=== PATIENT | female | born 1945 | race Caucasian/White ===

== ENCOUNTER 2016-05-14 13:47 | Observation (INO) | payer OTHER ==
[~2016-05-14] VITALS: Ht 165.1 cm; Wt 100.0 kg
[~2016-05-14 13:47] MED LIST: BIOTIN PO; BYETTA10 MCG/0.0 SQ; CALCIUM + VIT1 EACH PO; CALCIUM WITH V1 EAC1 PO; CRESTOR5 MG PO; FEXOFENADINE H180 M1 PO; FUROSEMIDE40 MG PO; JANUMET 50/11 TABLET PO; LOTREL 2.5/1 CAPSULE PO; METFORMIN HCL500 MG PO; METOPROLOL SUCC25 MG PO; MULTI VITAMINS; OMEPRAZOLE20 M2 PO; SPIRIVA1 INHALATI IH; SYNTHROID125 MCG PO; VITAMIN D
[2016-05-14] MEDS ORDERED: LEVOTHYROXINE112 MCG PO (14:20)
[2016-05-14] MEDS ORDERED: LEVOCETIRIZINE D5 MG PO (14:21)
[2016-05-14] MEDS ORDERED: ATORVASTATIN CA10 MG PO (14:23)
[2016-05-14 15:12] LABS: HEMATOCRIT 38.5 % (36.0-46.0); MCH 30.4 PG (29.0-34.0); MCHC 32.7 G/DL (30.0-36.0); MEAN PLAT.VOLUME 10.9 uM^3 (9.5-12.4); PLATELET COUNT 216 K/uL (156-360); RBC DIS.WIDTH-CV 16.8 % (11.8-14.6); RBC DIS.WIDTH-SD 57.2 % (39-53); RED BLOOD COUNT 4.14 M/uL (3.80-5.20); WHITE BLOOD COUNT 8.2 K/uL (4.1-10.2)
[2016-05-14 15:21] LABS: CHLORIDE 102 mEq/L (99-109); POTASSIUM 3.2 mEq/L (3.7-5.4); SODIUM 142 mEq/L (136-147)
[2016-05-14 15:23] LABS: GLUCOSE 107 mg/dL (70-99)
[2016-05-14 15:25] LABS: ANION GAP 13 MEQ/L (2-14)
[2016-05-14 15:27] LABS: GFR ESTIMATE (CALCULATED) 47 mL/min/
[2016-05-14 15:28] LABS: UREA NITROGEN (BUN) 14 mg/dL (9-23)
[2016-05-14 15:33] LABS: TROP-I INTERPRETATION NEGATIVE; TROPONIN-I < 0.01 ng/mL (0.0-0.30)
[2016-05-14] MEDS ORDERED: LOTREL 5/101 CAPSULE PO (16:40)
[2016-05-14] MEDS ORDERED: CALCIUM 500 +1 EACH PO (16:41)
[2016-05-14] MEDS ORDERED: OMEPRAZOLE20 MG PO (16:41)
[2016-05-14] MEDS ORDERED: FLINTSTONES1 EACH PO (16:42)
[2016-05-14] MEDS ORDERED: BIOTIN1000 MICRO PO (16:42)
[2016-05-14] MEDS ORDERED: AMLODIPINE BES2.5 MG PO (16:43)
[2016-05-14] MEDS ORDERED: FERROCITE324 MG PO (16:44)
[2016-05-14] MEDS ORDERED: EPIPEN ADU0.3 MG/0.3 IM (16:44)
[2016-05-14] MEDS ORDERED: MAGNESIUM OXID500 MG PO (16:44)
[2016-05-14] MEDS ORDERED: HIZENTRA4 GM/20 ML SC (16:45)
[2016-05-14 21:19] LABS: D-DIMER ELISA 3.33 mg/L FEU (< 0.57)
[2016-05-14 21:24] LABS: TOTAL BILIRUBIN 0.6 mg/dL (0.0-1.0)
[2016-05-14 21:25] LABS: ALKALINE PHOSPHATASE 52 IU/L (3-129)
[2016-05-14 21:27] LABS: DIRECT BILIRUBIN 0.3 mg/dL (0.0-0.3)
[2016-05-14 21:29] LABS: LIPASE 10 U/L (1.0-51.0)
[2016-05-14 21:32] LABS: TROP-I INTERPRETATION NEGATIVE; TROPONIN-I 0.01 ng/mL (0.0-0.30)
[2016-05-14 21:50] VITALS: BP 149/63
[2016-05-14 22:48] LABS: POINT-OF-CARE METER ID UU13113831
[2016-05-15 01:05] VITALS: BP 156/72
[2016-05-15 04:30] LABS: HEMATOCRIT 36.3 % (36.0-46.0); MCH 30.8 PG (29.0-34.0); MCHC 33.3 G/DL (30.0-36.0); MCV 92.4 FL (83-99); MEAN PLAT.VOLUME 10.6 uM^3 (9.5-12.4); PLATELET COUNT 219 K/uL (156-360); RBC DIS.WIDTH-CV 16.9 % (11.8-14.6); RBC DIS.WIDTH-SD 57.5 % (39-53); RED BLOOD COUNT 3.93 M/uL (3.80-5.20); WHITE BLOOD COUNT 7.3 K/uL (4.1-10.2)
[2016-05-15 04:51] VITALS: BP 142/83
[2016-05-15 04:58] LABS: TROP-I INTERPRETATION NEGATIVE; TROPONIN-I 0.01 ng/mL (0.0-0.30)
[2016-05-15 07:43] VITALS: BP 125/58
[2016-05-15 08:45] LABS: POINT-OF-CARE METER ID UU13113700
[2016-05-15 09:15] LABS: POTASSIUM 3.4 mEq/L (3.7-5.4)
[2016-05-15 09:16] LABS: GLUCOSE 82 mg/dL (70-99)
[2016-05-15 09:18] LABS: ANION GAP 15 MEQ/L (2-14)
[2016-05-15 09:20] LABS: GFR ESTIMATE (CALCULATED) 52 mL/min/
[2016-05-15 09:21] LABS: UREA NITROGEN (BUN) 14 mg/dL (9-23)
[2016-05-15 09:35] LABS: SODIUM 141 mEq/L (136-147)
[2016-05-15 09:41] LABS: CHLORIDE 104 mEq/L (99-109)
[2016-05-15 10:59] VITALS: BP 133/66
[2016-05-15 14:47] LABS: INTER. NORMALIZED RATIO 1.3; PROTHROMBIN TIME 13.8 (9.2-11.2); PTT 28.6 (25-32)
[2016-05-15] MEDS ORDERED: ELIQUIS5 MG PO ×2 (15:12→16:09)
[2016-05-15] MEDS ORDERED: POTASSIUM CHLO10 ME3 PO (15:24)
[2016-05-15 16:25] VITALS: BP 126/71
== END 2016-05-15 17:47 | disposition home or self-care (01) ==
LOC: EME → EDBD 13:47 → EME 13:47 → EDOF 19:45 → 5WEST 19:45
PROVIDERS: Emergency Medicine; Hospitalist; Internal Medicine
DX: R07.89 Other chest pain (principal); I82.432 Acute embolism and thrombosis of left popliteal vein; E87.6 Hypokalemia; I11.0 Hypertensive heart disease with heart failure; I50.9 Heart failure, unspecified; E66.01 Morbid (severe) obesity due to excess calories; J84.10 Pulmonary fibrosis, unspecified; Z98.84 Bariatric surgery status; E11.9 Type 2 diabetes mellitus without complications; Z86.718 Personal history of other venous thrombosis and embolism; M19.90 Unspecified osteoarthritis, unspecified site; E78.5 Hyperlipidemia, unspecified; D50.9 Iron deficiency anemia, unspecified; E03.9 Hypothyroidism, unspecified
CPT/HCPCS: 71020; 71275; 80048; 80076; 82948; 83690; 84484; 85027; 85379; 85610; 85730; 93005; 93970; 99281; 99285; G0378; J1650; J1815

== ENCOUNTER 2016-06-01 11:11 | Inpatient (IN) | payer OTHER ==
[~2016-06-01] VITALS: Ht 165.1 cm; Wt 126.2 kg
[~2016-06-01 11:11] MED LIST changes: +AMLODIPINE BES2.5 MG PO; +ATORVASTATIN CA10 MG PO; +BIOTIN1000 MICRO PO; +CALCIUM 500 +1 EACH PO; +ELIQUIS5 MG PO; +EPIPEN ADU0.3 MG/0.3 IM; +FERROCITE324 MG PO; +FLINTSTONES1 EACH PO; +HIZENTRA4 GM/20 ML SC; +LEVOCETIRIZINE D5 MG PO; +LEVOTHYROXINE112 MCG PO; +LOTREL 5/101 CAPSULE PO; +MAGNESIUM OXID500 MG PO; +OMEPRAZOLE20 MG PO; +POTASSIUM CHLO10 ME3 PO
[2016-06-01 12:26] LABS: HEMATOCRIT 42.1 % (36.0-46.0); MCH 30.4 PG (29.0-34.0); MCHC 32.5 G/DL (30.0-36.0); MCV 93.6 FL (83-99); RBC DIS.WIDTH-CV 15.6 % (11.8-14.6)
[2016-06-01 12:27] LABS: PLATELET COUNT 393 K/uL (156-360); WHITE BLOOD COUNT 10.2 K/uL (4.1-10.2)
[2016-06-01 12:50] LABS: TROP-I INTERPRETATION NEGATIVE; TROPONIN-I 0.02 ng/mL (0.0-0.30)
[2016-06-01 12:59] LABS: CHLORIDE 101 mEq/L (99-109); POTASSIUM 3.3 mEq/L (3.7-5.4); SODIUM 144 mEq/L (136-147)
[2016-06-01 13:01] LABS: GLUCOSE 151 mg/dL (70-99)
[2016-06-01 13:02] LABS: ANION GAP 19 MEQ/L (2-14)
[2016-06-01 13:03] LABS: TOTAL BILIRUBIN 0.6 mg/dL (0.0-1.0)
[2016-06-01 13:04] LABS: ALKALINE PHOSPHATASE 60 IU/L (3-129)
[2016-06-01 13:05] LABS: GFR ESTIMATE (CALCULATED) 34 mL/min/
[2016-06-01 13:06] LABS: UREA NITROGEN (BUN) 32 mg/dL (9-23)
[2016-06-01] MEDS ORDERED: B-12500 MC1 SL (16:29)
[2016-06-01] MEDS ORDERED: ELIQUIS5 MG PO (16:29)
[2016-06-01 17:41] VITALS: BP 148/76
[2016-06-01 20:20] VITALS: BP 173/77
[2016-06-02] VITALS (9 sets, daily range): BP systolic 126–174; BP diastolic 65–80
[2016-06-02 00:44] LABS: POINT-OF-CARE METER ID UU14162508
[2016-06-02 06:08] LABS: POINT-OF-CARE METER ID UU14162508
[2016-06-02 07:39] LABS: HEMATOCRIT 36.2 % (36.0-46.0); MCH 30.6 PG (29.0-34.0); MCHC 32.6 G/DL (30.0-36.0); MCV 93.8 FL (83-99); MEAN PLAT.VOLUME 10.6 uM^3 (9.5-12.4); PLATELET COUNT 291 K/uL (156-360); RBC DIS.WIDTH-CV 15.8 % (11.8-14.6); RBC DIS.WIDTH-SD 54.7 % (39-53); RED BLOOD COUNT 3.86 M/uL (3.80-5.20); WHITE BLOOD COUNT 8.2 K/uL (4.1-10.2)
[2016-06-02 08:08] LABS: ALKALINE PHOSPHATASE 52 IU/L (3-129); ANION GAP 14 MEQ/L (2-14); CHLORIDE 105 MEQ/L (99-109); GFR ESTIMATE (CALCULATED) 47 mL/min/; POTASSIUM 3.3 MEQ/L (3.7-5.4); SAMPLE HEMOLYSIS CHECK 0; SAMPLE ICTERIC CHECK 0; SAMPLE LIPEMIA CHECK 0; SODIUM 146 MEQ/L (136-147); TOTAL BILIRUBIN 0.5 MG/DL (0.0-1.0); UREA NITROGEN (BUN) 22 mg/dL (9-23)
[2016-06-02 08:10] LABS: GLUCOSE 90 mg/dL (70-99)
[2016-06-03 04:09] VITALS: BP 133/65
[2016-06-03 06:17] LABS: POINT-OF-CARE METER ID UU14162508
[2016-06-03 07:55] VITALS: BP 149/71
[2016-06-03 09:31] LABS: HEMATOCRIT 38.4 % (36.0-46.0); MCH 30.7 PG (29.0-34.0); MCHC 32.8 G/DL (30.0-36.0); MCV 93.7 FL (83-99); MEAN PLAT.VOLUME 10.8 uM^3 (9.5-12.4); PLATELET COUNT 266 K/uL (156-360); RBC DIS.WIDTH-CV 15.5 % (11.8-14.6); RBC DIS.WIDTH-SD 53.7 % (39-53); WHITE BLOOD COUNT 10.8 K/uL (4.1-10.2)
[2016-06-03 10:46] LABS: ANION GAP 20 MEQ/L (2-14); CHLORIDE 108 MEQ/L (99-109); GFR ESTIMATE (CALCULATED) 52 mL/min/; GLUCOSE 72 mg/dL (70-99); POTASSIUM 3.2 MEQ/L (3.7-5.4); SAMPLE HEMOLYSIS CHECK 0; SAMPLE ICTERIC CHECK 0; SAMPLE LIPEMIA CHECK 0; SODIUM 149 MEQ/L (136-147); UREA NITROGEN (BUN) 12 mg/dL (9-23)
[2016-06-03 11:20] VITALS: BP 158/80
[2016-06-03 15:20] VITALS: BP 143/78
[2016-06-03 18:44] LABS: POINT-OF-CARE METER ID UU13113675
[2016-06-03 20:08] VITALS: BP 150/79
[2016-06-04 00:26] VITALS: BP 137/76
[2016-06-04 04:29] VITALS: BP 136/68
[2016-06-04 07:08] LABS: HEMATOCRIT 34.9 % (36.0-46.0); MCHC 33.2 G/DL (30.0-36.0); MCV 93.3 FL (83-99); MEAN PLAT.VOLUME 10.8 uM^3 (9.5-12.4); PLATELET COUNT 249 K/uL (156-360); RBC DIS.WIDTH-CV 15.4 % (11.8-14.6); RBC DIS.WIDTH-SD 53.1 % (39-53); RED BLOOD COUNT 3.74 M/uL (3.80-5.20)
[2016-06-04 07:11] LABS: WHITE BLOOD COUNT 16.7 K/uL (4.1-10.2)
[2016-06-04 07:18] LABS: ANION GAP 13 MEQ/L (2-14); CHLORIDE 106 MEQ/L (99-109); GFR ESTIMATE (CALCULATED) 58 mL/min/; POTASSIUM 3.4 MEQ/L (3.7-5.4); SAMPLE HEMOLYSIS CHECK 0; SAMPLE ICTERIC CHECK 0; SAMPLE LIPEMIA CHECK 0; UREA NITROGEN (BUN) 10 mg/dL (9-23)
[2016-06-04 07:19] LABS: GLUCOSE 120 mg/dL (70-99); SODIUM 141 MEQ/L (136-147)
[2016-06-04 07:31] VITALS: BP 150/70
[2016-06-04 10:54] VITALS: BP 102/57
[2016-06-04 12:30] LABS: POINT-OF-CARE METER ID UU14162508
[2016-06-04 15:53] VITALS: BP 102/49
[2016-06-04 17:19] LABS: POINT-OF-CARE METER ID UU14162508
[2016-06-04 20:20] VITALS: BP 114/59
[2016-06-05] VITALS (7 sets, daily range): BP systolic 121–136; BP diastolic 58–72
[2016-06-05 00:51] LABS: POINT-OF-CARE METER ID UU14162508
[2016-06-05 06:02] LABS: POINT-OF-CARE METER ID UU14162508
[2016-06-05 07:46] LABS: HEMATOCRIT 33.6 % (36.0-46.0); MCH 31.4 PG (29.0-34.0); MCHC 33.9 G/DL (30.0-36.0); MCV 92.6 FL (83-99); PLATELET COUNT 244 K/uL (156-360); RBC DIS.WIDTH-CV 15.5 % (11.8-14.6); RED BLOOD COUNT 3.63 M/uL (3.80-5.20)
[2016-06-05 07:47] LABS: WHITE BLOOD COUNT 11.3 K/uL (4.1-10.2)
[2016-06-05] MEDS ORDERED: LOVENOX100 MG/1 M SC (08:05)
[2016-06-05] MEDS ORDERED: MORPHINE SULFAT10 M3 PO (08:05)
[2016-06-05 08:11] LABS: CHLORIDE 107 mEq/L (99-109); POTASSIUM 3.1 mEq/L (3.7-5.4); SODIUM 139 mEq/L (136-147)
[2016-06-05 08:12] LABS: MAGNESIUM 1.6 mg/dL (1.3-2.7)
[2016-06-05 08:13] LABS: GLUCOSE 95 mg/dL (70-99)
[2016-06-05 08:14] LABS: ANION GAP 10 MEQ/L (2-14)
[2016-06-05 08:17] LABS: GFR ESTIMATE (CALCULATED) 58 mL/min/; UREA NITROGEN (BUN) 8 mg/dL (9-23)
[2016-06-05 16:31] LABS: TROP-I INTERPRETATION NEGATIVE; TROPONIN-I 0.01 ng/mL (0.0-0.30)
[2016-06-05 21:14] LABS: TROP-I INTERPRETATION NEGATIVE; TROPONIN-I 0.01 ng/mL (0.0-0.30)
[2016-06-05 21:36] LABS: POINT-OF-CARE METER ID UU14162508
[2016-06-06] VITALS (7 sets, daily range): BP systolic 74–127; BP diastolic 43–65
[2016-06-06 06:32] LABS: POINT-OF-CARE METER ID UU14162508
[2016-06-06 09:00] LABS: MCH 30.8 PG (29.0-34.0); MCHC 33.4 G/DL (30.0-36.0); MCV 92.1 FL (83-99); MEAN PLAT.VOLUME 11.4 uM^3 (9.5-12.4); PLATELET COUNT 299 K/uL (156-360); RBC DIS.WIDTH-CV 15.7 % (11.8-14.6); RBC DIS.WIDTH-SD 52.8 % (39-53); RED BLOOD COUNT 3.15 M/uL (3.80-5.20); WHITE BLOOD COUNT 14.5 K/uL (4.1-10.2)
[2016-06-06 09:09] LABS: ANION GAP 9 MEQ/L (2-14); CHLORIDE 108 MEQ/L (99-109); POTASSIUM 3.5 MEQ/L (3.7-5.4); SAMPLE HEMOLYSIS CHECK 0; SAMPLE ICTERIC CHECK 0; SAMPLE LIPEMIA CHECK 0; SODIUM 136 MEQ/L (136-147)
[2016-06-06 09:15] LABS: GFR ESTIMATE (CALCULATED) 52 mL/min/; UREA NITROGEN (BUN) 8 mg/dL (9-23)
[2016-06-06 09:20] LABS: GLUCOSE 180 mg/dL (70-99)
[2016-06-07] VITALS (28 sets, daily range): BP systolic 79–124; BP diastolic 35–66
[2016-06-07 00:36] LABS: CHLORIDE 108 mEq/L (99-109)
[2016-06-07 00:37] LABS: POTASSIUM 3.6 mEq/L (3.7-5.4); SODIUM 135 mEq/L (136-147)
[2016-06-07 00:39] LABS: GLUCOSE 179 mg/dL (70-99)
[2016-06-07 00:40] LABS: ANION GAP 8 MEQ/L (2-14)
[2016-06-07 00:42] LABS: ALKALINE PHOSPHATASE 47 IU/L (3-129)
[2016-06-07 00:44] LABS: UREA NITROGEN (BUN) 11 mg/dL (9-23)
[2016-06-07 00:45] LABS: GFR ESTIMATE (CALCULATED) 31 mL/min/; TOTAL BILIRUBIN 0.2 mg/dL (0.0-1.0)
[2016-06-07 00:57] LABS: HEMATOCRIT 21.4 % (36.0-46.0); MCHC 32.7 G/DL (30.0-36.0); MCV 94.7 FL (83-99); MEAN PLAT.VOLUME 11.7 uM^3 (9.5-12.4); PLATELET COUNT 290 K/uL (156-360); RBC DIS.WIDTH-CV 15.9 % (11.8-14.6); RED BLOOD COUNT 2.26 M/uL (3.80-5.20); WHITE BLOOD COUNT 19.9 K/uL (4.1-10.2)
[2016-06-07 06:39] LABS: POINT-OF-CARE METER ID UU14162508
[2016-06-07 11:04] LABS: HEMATOCRIT 26.8 % (36.0-46.0); MCHC 33.6 G/DL (30.0-36.0); MCV 92.4 FL (83-99); NRBC (%) 0.1 /100 WBC (0-0); PLATELET COUNT 253 K/uL (156-360); RBC DIS.WIDTH-CV 15.9 % (11.8-14.6); RBC DIS.WIDTH-SD 53.8 % (39-53)
[2016-06-07 11:28] LABS: ANION GAP 10 MEQ/L (2-14); CHLORIDE 104 MEQ/L (99-109); GFR ESTIMATE (CALCULATED) 26 mL/min/; GLUCOSE 122 mg/dL (70-99); POTASSIUM 3.6 MEQ/L (3.7-5.4); SAMPLE HEMOLYSIS CHECK 0; SAMPLE ICTERIC CHECK 0; SAMPLE LIPEMIA CHECK 0; SODIUM 134 MEQ/L (136-147); TROP-I INTERPRETATION NEGATIVE; TROPONIN-I 0.04 ng/mL (0.0-0.30); UREA NITROGEN (BUN) 13 mg/dL (9-23)
[2016-06-07 16:00] LABS: POINT-OF-CARE METER ID UU13113781
[2016-06-07 16:27] LABS: HEMATOCRIT 24.7 % (36.0-46.0); MCV 92.2 FL (83-99)
[2016-06-07 19:54] LABS: METH RESISTANT S AUREUS PCR NEGATIVE (NEGATIVE)
[2016-06-07 20:16] LABS: PROBE CHECK PASS; SPECIMEN PROCESSING CONTROL PASS
[2016-06-08] VITALS (31 sets, daily range): BP systolic 69–153; BP diastolic 30–85
[2016-06-08 03:36] LABS: HEMATOCRIT 27.8 % (36.0-46.0); MCH 30.4 PG (29.0-34.0); MCHC 34.2 G/DL (30.0-36.0); MCV 88.8 FL (83-99); NRBC (%) 0.2 /100 WBC (0-0); PLATELET COUNT 255 K/uL (156-360); RBC DIS.WIDTH-CV 16.1 % (11.8-14.6); RBC DIS.WIDTH-SD 50.9 % (39-53); RED BLOOD COUNT 3.13 M/uL (3.80-5.20)
[2016-06-08 03:44] LABS: CHLORIDE 107 mEq/L (99-109); POTASSIUM 3.6 mEq/L (3.7-5.4); SODIUM 133 mEq/L (136-147)
[2016-06-08 03:47] LABS: ANION GAP 9 MEQ/L (2-14)
[2016-06-08 03:50] LABS: GFR ESTIMATE (CALCULATED) 21 mL/min/
[2016-06-08 03:51] LABS: UREA NITROGEN (BUN) 15 mg/dL (9-23)
[2016-06-08 03:52] LABS: GLUCOSE 62 mg/dL (70-99)
[2016-06-08 07:21] LABS: POINT-OF-CARE METER ID UU13113731
[2016-06-08 07:58] LABS: POINT-OF-CARE METER ID UU13113731
[2016-06-08 08:25] LABS: Estimated Average Glucose 120 mg/dL (70-123); HEMOGLOBIN A1c (GLYCOHEMOGLOB) 5.8 % HGB (Below 5.7)
[2016-06-08 08:39] LABS: POINT-OF-CARE METER ID UU13113731
[2016-06-08 09:27] LABS: POINT-OF-CARE METER ID UU13113731
[2016-06-08 10:29] LABS: HEMATOCRIT 22.2 % (36.0-46.0); MCV 88.4 FL (83-99)
[2016-06-08 11:14] LABS: POINT-OF-CARE METER ID UU13113731
[2016-06-08 12:10] LABS: BASE EXCESS -7.3 mEq/L (-3 to +3); BICARBONATE 17.9 mEq/L (22-26); CARBOXY HGB 1.9 % (0-5); COMMENTS - BLOOD GASES NAC+; DEVICE NC; METHEMOGLOBIN 1.5 % (0-1.5); O2 FLOW 4 L/MIN; PCO2 34 mm Hg (35-45); PO2 81 mm Hg (80-100); SITE RB; TOTAL RESP RATE 18 resp/min; pH 7.33 (7.35-7.45)
[2016-06-08 14:25] LABS: INTER. NORMALIZED RATIO 1.3; PROTHROMBIN TIME 12.9 (9.2-11.2)
[2016-06-08 14:34] LABS: PTT 20.5 (25-32)
[2016-06-08 15:27] LABS: POINT-OF-CARE METER ID UU13113731
[2016-06-08 16:11] LABS: HEMATOCRIT 28.5 % (36.0-46.0)
[2016-06-08 17:08] LABS: POINT-OF-CARE METER ID UU13113731
[2016-06-08 22:10] LABS: HEMATOCRIT 24.3 % (36.0-46.0); MCV 87.4 FL (83-99)
[2016-06-09] VITALS (18 sets, daily range): BP systolic 95–131; BP diastolic 34–52
[2016-06-09 03:13] LABS: POINT-OF-CARE METER ID UU13113731
[2016-06-09 04:47] LABS: EOSINOPHIL (%) 0.1 % (0-5); HEMATOCRIT 25.7 % (36.0-46.0); IMMATURE GRANULOCYTE (%) 1.3 % (0.0-0.7); IMMATURE GRANULOCYTE COUNT 0.3 K/uL; INSTRUMENT ABS NEUTROPHIL CT 17.4 K/uL; LYMPHOCYTE COUNT 0.6 K/uL (1.0-2.8); MCH 30.5 PG (29.0-34.0); MCV 87.1 FL (83-99); MONOCYTE (%) 8.3 % (3-12); MONOCYTE COUNT 1.7 K/uL (0-0.8); NEUTROPHIL (%) 87.3 % (45-76); NEUTROPHIL COUNT 17.4 K/uL (1.8-6.4); NRBC (%) 0.3 /100 WBC (0-0); RBC DIS.WIDTH-SD 49.8 % (39-53); RED BLOOD COUNT 2.95 M/uL (3.80-5.20); WHITE BLOOD COUNT 19.9 K/uL (4.1-10.2)
[2016-06-09 04:58] LABS: CHLORIDE 103 mEq/L (99-109); POTASSIUM 4.2 mEq/L (3.7-5.4); SODIUM 130 mEq/L (136-147)
[2016-06-09 05:15] LABS: GFR ESTIMATE (CALCULATED) 17 mL/min/; GLUCOSE 162 mg/dL (70-99); UREA NITROGEN (BUN) 21 mg/dL (9-23)
[2016-06-09 05:34] LABS: MEAN PLAT.VOLUME 10.7 uM^3 (9.5-12.4); PLAT.SUFFICIENCY ADEQUATE
[2016-06-09 05:35] LABS: PLATELET COUNT 174 K/uL (156-360)
[2016-06-09 15:01] LABS: BASE EXCESS -6.1 mEq/L (-3 to +3); BICARBONATE 18.5 mEq/L (22-26); CARBOXY HGB 1.6 % (0-5); METHEMOGLOBIN 1.9 % (0-1.5); PCO2 32 mm Hg (35-45); PO2 88 mm Hg (80-100); pH 7.37 (7.35-7.45)
[2016-06-09 15:04] LABS: O2 FLOW 3 L/MIN; SITE RR
[2016-06-09 15:05] LABS: COMMENTS - BLOOD GASES A+C+; DEVICE NC
[2016-06-09 15:11] LABS: POINT-OF-CARE METER ID UU13113731
[2016-06-09 15:30] LABS: HEMATOCRIT 23.2 % (36.0-46.0); MCV 88.2 FL (83-99)
[2016-06-09 18:09] LABS: POINT-OF-CARE METER ID UU13113731
[2016-06-09 22:37] LABS: POINT-OF-CARE METER ID UU13113731
[2016-06-10] VITALS (8 sets, daily range): BP systolic 82–129; BP diastolic 37–73
[2016-06-10 02:54] LABS: POINT-OF-CARE METER ID UU14174217
[2016-06-10 06:12] LABS: POINT-OF-CARE METER ID UU13113731
[2016-06-10 06:51] LABS: EOSINOPHIL (%) 0.2 % (0-5); EOSINOPHIL COUNT 0.1 K/uL (0-0.3); HEMATOCRIT 21.6 % (36.0-46.0); IMMATURE GRANULOCYTE (%) 1.6 % (0.0-0.7); IMMATURE GRANULOCYTE COUNT 0.4 K/uL; INSTRUMENT ABS NEUTROPHIL CT 19.3 K/uL; LYMPHOCYTE COUNT 0.6 K/uL (1.0-2.8); MCH 30.4 PG (29.0-34.0); MCHC 33.8 G/DL (30.0-36.0); MEAN PLAT.VOLUME 10.8 uM^3 (9.5-12.4); MONOCYTE (%) 9.5 % (3-12); MONOCYTE COUNT 2.1 K/uL (0-0.8); NEUTROPHIL (%) 85.9 % (45-76); NEUTROPHIL COUNT 19.3 K/uL (1.8-6.4); NRBC (%) 0.3 /100 WBC (0-0); PLATELET COUNT 160 K/uL (156-360); RBC DIS.WIDTH-SD 51.8 % (39-53); WHITE BLOOD COUNT 22.5 K/uL (4.1-10.2)
[2016-06-10 07:20] LABS: ANION GAP 9 MEQ/L (2-14); GFR ESTIMATE (CALCULATED) 15 mL/min/; GLUCOSE 167 mg/dL (70-99); SAMPLE HEMOLYSIS CHECK 0; SAMPLE ICTERIC CHECK 0; SAMPLE LIPEMIA CHECK 0; SODIUM 124 MEQ/L (136-147)
[2016-06-10 07:22] LABS: CHLORIDE 93 MEQ/L (99-109); UREA NITROGEN (BUN) 32 mg/dL (9-23)
[2016-06-10 12:52] LABS: POINT-OF-CARE METER ID UU13113731
[2016-06-10 13:45] LABS: HEMATOCRIT 23.1 % (36.0-46.0); MCH 30.2 PG (29.0-34.0); MCHC 33.8 G/DL (30.0-36.0); MCV 89.5 FL (83-99); MEAN PLAT.VOLUME 10.5 uM^3 (9.5-12.4); NRBC (%) 0.4 /100 WBC (0-0); PLATELET COUNT 159 K/uL (156-360); RBC DIS.WIDTH-CV 16.1 % (11.8-14.6); RBC DIS.WIDTH-SD 51.8 % (39-53); RED BLOOD COUNT 2.58 M/uL (3.80-5.20); WHITE BLOOD COUNT 22.7 K/uL (4.1-10.2)
[2016-06-10 14:29] LABS: AHBS INDEX 102.18; ANTI-HEPATITIS B CORE (TOTAL) Nonreactive; HBCT INDEX 0.32; HBSG INDEX 0.24; HEPATITIS B SURFACE ANTIBODY REACTIVE; HPCA INDEX 0.15
[2016-06-10 18:40] LABS: POINT-OF-CARE METER ID UU14174217
[2016-06-10 22:34] LABS: POINT-OF-CARE METER ID UU14174217
[2016-06-11] VITALS (7 sets, daily range): BP systolic 130–160; BP diastolic 56–79
[2016-06-11 09:07] LABS: EOSINOPHIL (%) 0.8 % (0-5); EOSINOPHIL COUNT 0.2 K/uL (0-0.3); HEMATOCRIT 27.5 % (36.0-46.0); IMMATURE GRANULOCYTE COUNT 0.4 K/uL; INSTRUMENT ABS NEUTROPHIL CT 16.1 K/uL; LYMPHOCYTE COUNT 0.6 K/uL (1.0-2.8); MCH 29.4 PG (29.0-34.0); MCHC 33.5 G/DL (30.0-36.0); MCV 87.9 FL (83-99); MEAN PLAT.VOLUME 10.4 uM^3 (9.5-12.4); MONOCYTE (%) 8.8 % (3-12); MONOCYTE COUNT 1.7 K/uL (0-0.8); NEUTROPHIL (%) 85.1 % (45-76); NEUTROPHIL COUNT 16.1 K/uL (1.8-6.4); NRBC (%) 0.1 /100 WBC (0-0); PLATELET COUNT 161 K/uL (156-360); RBC DIS.WIDTH-CV 16.4 % (11.8-14.6); RBC DIS.WIDTH-SD 50.7 % (39-53); WHITE BLOOD COUNT 18.9 K/uL (4.1-10.2)
[2016-06-11 09:28] LABS: ANION GAP 8 MEQ/L (2-14); CHLORIDE 95 MEQ/L (99-109); GFR ESTIMATE (CALCULATED) 20 mL/min/; GLUCOSE 116 mg/dL (70-99); MAGNESIUM 1.8 mg/dl (1.3-2.7); POTASSIUM 3.9 MEQ/L (3.7-5.4); SAMPLE HEMOLYSIS CHECK 0; SAMPLE ICTERIC CHECK 0; SAMPLE LIPEMIA CHECK 0; SODIUM 127 MEQ/L (136-147); UREA NITROGEN (BUN) 26 mg/dL (9-23)
[2016-06-11 09:32] LABS: RED BLOOD COUNT 3.13 M/uL (3.80-5.20)
[2016-06-11 23:08] LABS: EOSINOPHIL (%) 0.7 % (0-5); EOSINOPHIL COUNT 0.1 K/uL (0-0.3); HEMATOCRIT 28.2 % (36.0-46.0); IMMATURE GRANULOCYTE (%) 1.9 % (0.0-0.7); IMMATURE GRANULOCYTE COUNT 0.3 K/uL; INSTRUMENT ABS NEUTROPHIL CT 13.4 K/uL; LYMPHOCYTE COUNT 0.6 K/uL (1.0-2.8); MCH 29.7 PG (29.0-34.0); MCHC 33.7 G/DL (30.0-36.0); MCV 88.1 FL (83-99); MEAN PLAT.VOLUME 10.2 uM^3 (9.5-12.4); MONOCYTE (%) 9.3 % (3-12); MONOCYTE COUNT 1.5 K/uL (0-0.8); NEUTROPHIL (%) 84.4 % (45-76); NEUTROPHIL COUNT 13.4 K/uL (1.8-6.4); PLATELET COUNT 179 K/uL (156-360); RBC DIS.WIDTH-CV 16.8 % (11.8-14.6); RBC DIS.WIDTH-SD 51.8 % (39-53); WHITE BLOOD COUNT 15.9 K/uL (4.1-10.2)
[2016-06-11 23:20] LABS: INTER. NORMALIZED RATIO 1.2; PROTHROMBIN TIME 12.7 (9.2-11.2)
[2016-06-11 23:22] LABS: ALKALINE PHOSPHATASE 79 IU/L (3-129); TOTAL BILIRUBIN 1.1 mg/dL (0.0-1.0)
[2016-06-11 23:23] LABS: DIRECT BILIRUBIN 0.5 mg/dL (0.0-0.3)
[2016-06-11 23:26] LABS: PTT 30.1 (25-32)
[2016-06-12] VITALS (9 sets, daily range): BP systolic 128–170; BP diastolic 58–74
[2016-06-12 00:20] LABS: D-DIMER LATEX POSITIVE
[2016-06-12 00:44] LABS: FIBRINOGEN 290 MG/DL (160-450)
[2016-06-12 00:53] LABS: LACTATE DEHYDROGENASE 341 IU/L (20-246)
[2016-06-12 01:13] LABS: SCHISTOCYTES NONE SEEN
[2016-06-12 07:03] LABS: EOSINOPHIL (%) 1.4 % (0-5); EOSINOPHIL COUNT 0.2 K/uL (0-0.3); HEMATOCRIT 25.7 % (36.0-46.0); IMMATURE GRANULOCYTE (%) 1.9 % (0.0-0.7); IMMATURE GRANULOCYTE COUNT 0.3 K/uL; INSTRUMENT ABS NEUTROPHIL CT 11.5 K/uL; LYMPHOCYTE COUNT 0.5 K/uL (1.0-2.8); MCH 29.4 PG (29.0-34.0); MCHC 32.7 G/DL (30.0-36.0); MCV 89.9 FL (83-99); MEAN PLAT.VOLUME 9.9 uM^3 (9.5-12.4); MONOCYTE (%) 10.1 % (3-12); MONOCYTE COUNT 1.4 K/uL (0-0.8); NEUTROPHIL (%) 82.8 % (45-76); NEUTROPHIL COUNT 11.5 K/uL (1.8-6.4); PLATELET COUNT 165 K/uL (156-360); RBC DIS.WIDTH-CV 16.7 % (11.8-14.6); RBC DIS.WIDTH-SD 53.4 % (39-53); RED BLOOD COUNT 2.86 M/uL (3.80-5.20); WHITE BLOOD COUNT 13.9 K/uL (4.1-10.2)
[2016-06-12 07:32] LABS: ANION GAP 5 MEQ/L (2-14); CHLORIDE 95 MEQ/L (99-109); GFR ESTIMATE (CALCULATED) 28 mL/min/; GLUCOSE 110 mg/dL (70-99); MAGNESIUM 1.7 mg/dl (1.3-2.7); POTASSIUM 3.9 MEQ/L (3.7-5.4); SAMPLE HEMOLYSIS CHECK 0; SAMPLE ICTERIC CHECK 0; SAMPLE LIPEMIA CHECK 0; SODIUM 129 MEQ/L (136-147); UREA NITROGEN (BUN) 21 mg/dL (9-23)
[2016-06-12 08:07] LABS: POINT-OF-CARE METER ID UU14174216
[2016-06-12 11:24] LABS: POINT-OF-CARE METER ID UU14174216
[2016-06-12 13:02] LABS: 1:1 MIXING STUDY PT 11.4 SEC; BASELINE PT 12.3 SEC (9.9-11.1)
[2016-06-12 13:05] LABS: 90 MINUTE INCUBATION PTT ND SEC
[2016-06-12 13:12] LABS: PTT BASELINE 30.5 SEC (25-32)
[2016-06-12 13:14] LABS: IMMEDIATE MIX PTT ND SEC
[2016-06-12 16:41] LABS: POINT-OF-CARE METER ID UU13113781
[2016-06-12 21:39] LABS: POINT-OF-CARE METER ID UU14174216
[2016-06-13] VITALS (7 sets, daily range): BP systolic 145–177; BP diastolic 66–80
[2016-06-13 07:06] LABS: EOSINOPHIL (%) 1.8 % (0-5); EOSINOPHIL COUNT 0.2 K/uL (0-0.3); HEMATOCRIT 29.4 % (36.0-46.0); IMMATURE GRANULOCYTE (%) 2.3 % (0.0-0.7); IMMATURE GRANULOCYTE COUNT 0.3 K/uL; INSTRUMENT ABS NEUTROPHIL CT 10.9 K/uL; LYMPHOCYTE COUNT 0.5 K/uL (1.0-2.8); MCH 29.7 PG (29.0-34.0); MCHC 32.7 G/DL (30.0-36.0); MEAN PLAT.VOLUME 9.7 uM^3 (9.5-12.4); MONOCYTE (%) 9.9 % (3-12); MONOCYTE COUNT 1.3 K/uL (0-0.8); NEUTROPHIL (%) 82.3 % (45-76); NEUTROPHIL COUNT 10.9 K/uL (1.8-6.4); PLATELET COUNT 207 K/uL (156-360); RBC DIS.WIDTH-CV 16.7 % (11.8-14.6); RBC DIS.WIDTH-SD 54.6 % (39-53); RED BLOOD COUNT 3.23 M/uL (3.80-5.20); WHITE BLOOD COUNT 13.2 K/uL (4.1-10.2)
[2016-06-13 07:28] LABS: ANION GAP 8 MEQ/L (2-14); CHLORIDE 95 MEQ/L (99-109); GFR ESTIMATE (CALCULATED) 28 mL/min/; GLUCOSE 111 mg/dL (70-99); MAGNESIUM 1.9 mg/dl (1.3-2.7); SAMPLE HEMOLYSIS CHECK 0; SAMPLE ICTERIC CHECK 0; SAMPLE LIPEMIA CHECK 0; SODIUM 130 MEQ/L (136-147); UREA NITROGEN (BUN) 30 mg/dL (9-23)
[2016-06-13 07:53] LABS: POINT-OF-CARE METER ID UU14174216
[2016-06-13 11:45] LABS: POINT-OF-CARE METER ID UU14174216
[2016-06-13 14:53] LABS: HAPTOGLOBIN+ 182 mg/dL (43-212)
[2016-06-13 21:45] LABS: POINT-OF-CARE METER ID UU14162508
[2016-06-14 03:15] VITALS: BP 133/72
[2016-06-14 07:19] VITALS: BP 128/71
[2016-06-14 07:36] LABS: EOSINOPHIL (%) 1.7 % (0-5); EOSINOPHIL COUNT 0.2 K/uL (0-0.3); HEMATOCRIT 29.9 % (36.0-46.0); IMMATURE GRANULOCYTE (%) 2.1 % (0.0-0.7); IMMATURE GRANULOCYTE COUNT 0.3 K/uL; INSTRUMENT ABS NEUTROPHIL CT 11.5 K/uL; LYMPHOCYTE COUNT 0.6 K/uL (1.0-2.8); MCH 29.7 PG (29.0-34.0); MCHC 32.4 G/DL (30.0-36.0); MCV 91.4 FL (83-99); MEAN PLAT.VOLUME 9.6 uM^3 (9.5-12.4); MONOCYTE (%) 9.6 % (3-12); MONOCYTE COUNT 1.3 K/uL (0-0.8); NEUTROPHIL (%) 81.9 % (45-76); NEUTROPHIL COUNT 11.5 K/uL (1.8-6.4); PLATELET COUNT 225 K/uL (156-360); RBC DIS.WIDTH-CV 16.5 % (11.8-14.6); RBC DIS.WIDTH-SD 54.9 % (39-53); RED BLOOD COUNT 3.27 M/uL (3.80-5.20)
[2016-06-14 07:53] LABS: INTER. NORMALIZED RATIO 1.2; PROTHROMBIN TIME 12.6 (9.2-11.2)
[2016-06-14 07:57] LABS: ANION GAP 6 MEQ/L (2-14); CHLORIDE 96 MEQ/L (99-109); GFR ESTIMATE (CALCULATED) 31 mL/min/; GLUCOSE 131 mg/dL (70-99); MAGNESIUM 1.8 mg/dl (1.3-2.7); POTASSIUM 3.8 MEQ/L (3.7-5.4); SAMPLE HEMOLYSIS CHECK 0; SAMPLE ICTERIC CHECK 0; SAMPLE LIPEMIA CHECK 0; SODIUM 131 MEQ/L (136-147); UREA NITROGEN (BUN) 33 mg/dL (9-23)
[2016-06-14 08:00] LABS: POINT-OF-CARE METER ID UU14162508
[2016-06-14 11:07] VITALS: BP 127/64
[2016-06-14 12:00] LABS: POINT-OF-CARE METER ID UU14162508
[2016-06-14 15:44] VITALS: BP 141/67
[2016-06-14 15:54] LABS: POINT-OF-CARE METER ID UU14162508
[2016-06-14 19:43] VITALS: BP 125/65
[2016-06-14 20:48] LABS: POINT-OF-CARE METER ID UU14162508
[2016-06-14 23:37] VITALS: BP 136/70
[2016-06-15 03:40] VITALS: BP 142/72
[2016-06-15 06:07] LABS: DRVVT Mixing Study Interp Not Indicated (()); PTT-LA 39 sec (<=40); dRVVT Screen 32 sec (<=45)
[2016-06-15 06:34] LABS: POINT-OF-CARE METER ID UU14162508
[2016-06-15 06:55] VITALS: BP 144/67
[2016-06-15 07:37] LABS: BASOPHIL COUNT 0.1 K/uL (0-0.1); EOSINOPHIL (%) 1.9 % (0-5); EOSINOPHIL COUNT 0.2 K/uL (0-0.3); HEMATOCRIT 29.2 % (36.0-46.0); IMMATURE GRANULOCYTE (%) 2.5 % (0.0-0.7); IMMATURE GRANULOCYTE COUNT 0.3 K/uL; LYMPHOCYTE COUNT 0.7 K/uL (1.0-2.8); MCH 29.4 PG (29.0-34.0); MCHC 31.8 G/DL (30.0-36.0); MCV 92.4 FL (83-99); MEAN PLAT.VOLUME 9.9 uM^3 (9.5-12.4); MONOCYTE (%) 10.1 % (3-12); MONOCYTE COUNT 1.3 K/uL (0-0.8); NEUTROPHIL (%) 79.5 % (45-76); PLATELET COUNT 227 K/uL (156-360); RBC DIS.WIDTH-CV 16.9 % (11.8-14.6); RBC DIS.WIDTH-SD 56.7 % (39-53); RED BLOOD COUNT 3.16 M/uL (3.80-5.20); WHITE BLOOD COUNT 12.5 K/uL (4.1-10.2)
[2016-06-15 08:01] LABS: ANION GAP 7 MEQ/L (2-14); CHLORIDE 97 MEQ/L (99-109); GFR ESTIMATE (CALCULATED) 39 mL/min/; GLUCOSE 151 mg/dL (70-99); MAGNESIUM 1.6 mg/dl (1.3-2.7); POTASSIUM 3.9 MEQ/L (3.7-5.4); SAMPLE HEMOLYSIS CHECK 0; SAMPLE ICTERIC CHECK 0; SAMPLE LIPEMIA CHECK 0; SODIUM 132 MEQ/L (136-147); UREA NITROGEN (BUN) 30 mg/dL (9-23)
[2016-06-15 09:35] LABS: INTER. NORMALIZED RATIO 1.3; PROTHROMBIN TIME 12.8 (9.2-11.2); PTT 27.2 (25-32)
[2016-06-15 12:13] VITALS: BP 144/66
[2016-06-15 16:51] VITALS: BP 126/61
[2016-06-15 23:58] VITALS: BP 134/74
[2016-06-16 07:02] LABS: BASOPHIL COUNT 0.1 K/uL (0-0.1); EOSINOPHIL (%) 2.1 % (0-5); EOSINOPHIL COUNT 0.3 K/uL (0-0.3); HEMATOCRIT 30.2 % (36.0-46.0); IMMATURE GRANULOCYTE (%) 3.1 % (0.0-0.7); IMMATURE GRANULOCYTE COUNT 0.4 K/uL; INSTRUMENT ABS NEUTROPHIL CT 10.2 K/uL; LYMPHOCYTE COUNT 0.7 K/uL (1.0-2.8); MCHC 31.8 G/DL (30.0-36.0); MCV 91.2 FL (83-99); MEAN PLAT.VOLUME 9.3 uM^3 (9.5-12.4); MONOCYTE (%) 8.3 % (3-12); MONOCYTE COUNT 1.1 K/uL (0-0.8); NEUTROPHIL (%) 80.7 % (45-76); NEUTROPHIL COUNT 10.2 K/uL (1.8-6.4); PLATELET COUNT 245 K/uL (156-360); RBC DIS.WIDTH-CV 16.8 % (11.8-14.6); RBC DIS.WIDTH-SD 55.2 % (39-53); RED BLOOD COUNT 3.31 M/uL (3.80-5.20); WHITE BLOOD COUNT 12.7 K/uL (4.1-10.2)
[2016-06-16 07:22] LABS: ANION GAP 7 MEQ/L (2-14); CHLORIDE 98 MEQ/L (99-109); GFR ESTIMATE (CALCULATED) 43 mL/min/; GLUCOSE 149 mg/dL (70-99); MAGNESIUM 1.5 mg/dl (1.3-2.7); POTASSIUM 3.9 MEQ/L (3.7-5.4); SAMPLE HEMOLYSIS CHECK 0; SAMPLE ICTERIC CHECK 0; SAMPLE LIPEMIA CHECK 0; SODIUM 134 MEQ/L (136-147); UREA NITROGEN (BUN) 27 mg/dL (9-23)
[2016-06-16 08:00] VITALS: BP 133/68
[2016-06-16 11:32] LABS: POINT-OF-CARE METER ID UU14162508
[2016-06-16 15:57] LABS: POINT-OF-CARE METER ID UU14162508
[2016-06-16 16:00] VITALS: BP 137/82
[2016-06-16 21:17] LABS: POINT-OF-CARE METER ID UU14162508
[2016-06-16 23:26] VITALS: BP 129/70
[2016-06-17 06:54] LABS: POINT-OF-CARE METER ID UU14162508
[2016-06-17 07:09] LABS: BASOPHIL COUNT 0.1 K/uL (0-0.1); EOSINOPHIL (%) 2.8 % (0-5); EOSINOPHIL COUNT 0.4 K/uL (0-0.3); HEMATOCRIT 31.6 % (36.0-46.0); IMMATURE GRANULOCYTE (%) 4.8 % (0.0-0.7); IMMATURE GRANULOCYTE COUNT 0.6 K/uL; INSTRUMENT ABS NEUTROPHIL CT 10.1 K/uL; LYMPHOCYTE COUNT 0.8 K/uL (1.0-2.8); MCH 29.1 PG (29.0-34.0); MCV 91.1 FL (83-99); MEAN PLAT.VOLUME 9.6 uM^3 (9.5-12.4); MONOCYTE (%) 8.3 % (3-12); MONOCYTE COUNT 1.1 K/uL (0-0.8); NEUTROPHIL (%) 77.2 % (45-76); NEUTROPHIL COUNT 10.1 K/uL (1.8-6.4); PLATELET COUNT 233 K/uL (156-360); RBC DIS.WIDTH-SD 55.8 % (39-53); RED BLOOD COUNT 3.47 M/uL (3.80-5.20)
[2016-06-17 07:28] LABS: ANION GAP 8 MEQ/L (2-14); CHLORIDE 97 MEQ/L (99-109); GFR ESTIMATE (CALCULATED) 43 mL/min/; GLUCOSE 139 mg/dL (70-99); MAGNESIUM 1.4 mg/dl (1.3-2.7); POTASSIUM 3.6 MEQ/L (3.7-5.4); SAMPLE HEMOLYSIS CHECK 0; SAMPLE ICTERIC CHECK 0; SAMPLE LIPEMIA CHECK 0; SODIUM 133 MEQ/L (136-147); UREA NITROGEN (BUN) 26 mg/dL (9-23)
[2016-06-17 09:04] VITALS: BP 155/82
[2016-06-17] MEDS ORDERED: ELIQUIS5 MG PO (15:00)
[2016-06-17 15:45] VITALS: BP 150/81
== END 2016-06-17 19:51 | DRG 987 ==
LOC: EME 11:11 → 2EAST 15:30 → 4WEST 15:30 → EDOF 15:30 → 4EAST 15:30 → 2EAST 17:15 → 4EAST 06-07 11:44 → 2EAST 06-07 11:44 → 4EAST 06-07 12:13 → 4WEST 06-07 16:59 → 4EAST 06-11 04:37 → 2EAST 06-13 19:39
PROVIDERS: Emergency Medicine; Family Medicine; Hospitalist; Internal Medicine; Internal Medicine Critical Care Medicine; Internal Medicine Hematology & Oncology; Internal Medicine Medical Oncology; Internal Medicine Nephrology; Internal Medicine Pulmonary Disease; Nurse Practitioner Family; Student in an Organized Health Care Education/Training Program; Surgery
PROC: 0DP64CZ Removal of Extraluminal Device from Stomach, Percutaneous Endoscopic Approach (ICD-10-PCS; principal; 2016-06-03)
PROC: 30233N1 Transfusion of Nonautologous Red Blood Cells into Peripheral Vein, Percutaneous Approach (ICD-10-PCS; 2016-06-07)
PROC: 05HM33Z Insertion of Infusion Device into Right Internal Jugular Vein, Percutaneous Approach (ICD-10-PCS; 2016-06-08)
PROC: 5A1D60Z (ICD-10-PCS; 2016-06-10)
PROC: 30233K1 Transfusion of Nonautologous Frozen Plasma into Peripheral Vein, Percutaneous Approach (ICD-10-PCS; 2016-06-10)
DX: K95.09 Other complications of gastric band procedure (principal); J69.0 Pneumonitis due to inhalation of food and vomit; D65 Disseminated intravascular coagulation [defibrination syndrome]; J18.1 Lobar pneumonia, unspecified organism; A41.9 Sepsis, unspecified organism; N17.9 Acute kidney failure, unspecified; K66.1 Hemoperitoneum; I95.9 Hypotension, unspecified; D62 Acute posthemorrhagic anemia; N94.89 Other specified conditions associated with female genital organs and menstrual cycle; Y73.1 Therapeutic (nonsurgical) and rehabilitative gastroenterology and urology devices associated with adverse incidents; K31.1 Adult hypertrophic pyloric stenosis; E03.9 Hypothyroidism, unspecified; E86.0 Dehydration; E87.6 Hypokalemia; R07.9 Chest pain, unspecified; Z79.4 Long term (current) use of insulin; Z68.42 Body mass index [BMI] 45.0-49.9, adult; Z86.718 Personal history of other venous thrombosis and embolism; E78.5 Hyperlipidemia, unspecified; E66.01 Morbid (severe) obesity due to excess calories; K21.9 Gastro-esophageal reflux disease without esophagitis; J84.9 Interstitial pulmonary disease, unspecified; I80.9 Phlebitis and thrombophlebitis of unspecified site; K59.00 Constipation, unspecified; I50.9 Heart failure, unspecified; I25.10 Atherosclerotic heart disease of native coronary artery without angina pectoris; I13.0 Hypertensive heart and chronic kidney disease with heart failure and stage 1 through stage 4 chronic kidney disease, or unspecified chronic kidney disease; N18.3 Chronic kidney disease, stage 3 (moderate); T50.8X5A Adverse effect of diagnostic agents, initial encounter; I27.2 Other secondary pulmonary hypertension; R32 Unspecified urinary incontinence; E87.1 Hypo-osmolality and hyponatremia; G89.29 Other chronic pain; M54.9 Dorsalgia, unspecified; J44.9 Chronic obstructive pulmonary disease, unspecified; M21.372 Foot drop, left foot; M21.371 Foot drop, right foot; E87.2 Acidosis; E83.42 Hypomagnesemia; R41.0 Disorientation, unspecified; E11.22 Type 2 diabetes mellitus with diabetic chronic kidney disease; I82.532 Chronic embolism and thrombosis of left popliteal vein; K91.870 Postprocedural hematoma of a digestive system organ or structure following a digestive system procedure
CPT/HCPCS: 36600; 71010; 71275; 74176; 78582; 80048; 80053; 80069; 80076; 81003; 82803; 82948; 83010 90; 83036; 83605; 83615; 83690; 83735; 84100; 84484; 85014; 85018; 85025; 85025 91; 85027; 85378; 85384; 85610; 85611; 85613 90; 85730; 85730 90; 85732; 86704; 86706; 86803; 86880; 86900; 86901; 86920; 87040; 87340; 87641; 93005; 93306; 93970; 94799; 97530 GO; 97530 GP; 99202; 99281; 99285; A9540; A9567; C1788; C9113; J0456; J0690; J0696; J1100; J1170; J1580; J1644; J1650; J1815; J2270; J2405; J2710; J2765; J3010; J3475; J3480; J7030; J7050; J7070; J7120; P9016; P9017; P9045; S0020

== ENCOUNTER 2016-06-25 16:24 | Inpatient (IN) | payer OTHER ==
[~2016-06-25] VITALS: Ht 165.1 cm; Wt 112.7 kg
[~2016-06-25 16:24] MED LIST changes: +B-12500 MC1 SL; +LOVENOX100 MG/1 M SC; +MORPHINE SULFAT10 M3 PO
[2016-06-25 17:36] LABS: HEMATOCRIT 30.1 % (36.0-46.0); MCH 29.9 PG (29.0-34.0); MCHC 32.9 G/DL (30.0-36.0); MCV 90.9 FL (83-99); RBC DIS.WIDTH-CV 17.9 % (11.8-14.6); RBC DIS.WIDTH-SD 59.2 % (39-53); RED BLOOD COUNT 3.31 M/uL (3.80-5.20); WHITE BLOOD COUNT 17.3 K/uL (4.1-10.2)
[2016-06-25 17:45] LABS: CHLORIDE 91 mEq/L (99-109); SODIUM 125 mEq/L (136-147)
[2016-06-25 17:47] LABS: GLUCOSE 125 mg/dL (70-99)
[2016-06-25 17:48] LABS: ANION GAP 8 MEQ/L (2-14); BASOPHIL COUNT 0.1 K/uL (0-0.1); EOSINOPHIL (%) 0.4 % (0-5); EOSINOPHIL COUNT 0.1 K/uL (0-0.3); IMMATURE GRANULOCYTE (%) 1.3 % (0.0-0.7); IMMATURE GRANULOCYTE COUNT 0.2 K/uL; INSTRUMENT ABS NEUTROPHIL CT 14.9 K/uL; LYMPHOCYTE COUNT 0.7 K/uL (1.0-2.8); MONOCYTE (%) 8.1 % (3-12); MONOCYTE COUNT 1.4 K/uL (0-0.8); NEUTROPHIL COUNT 14.9 K/uL (1.8-6.4)
[2016-06-25 17:49] LABS: TOTAL BILIRUBIN 1.1 mg/dL (0.0-1.0)
[2016-06-25 17:50] LABS: ALKALINE PHOSPHATASE 144 IU/L (3-129)
[2016-06-25 17:51] LABS: GFR ESTIMATE (CALCULATED) 29 mL/min/
[2016-06-25 17:52] LABS: UREA NITROGEN (BUN) 41 mg/dL (9-23)
[2016-06-25] MEDS ORDERED: MIRALAX17 GM PO (18:11)
[2016-06-25] MEDS ORDERED: CALCIUM 600 +1 EA17 PO (18:12)
[2016-06-25 18:24] LABS: HEMATOLOGY COMMENT 1 SN; MEAN PLAT.VOLUME 9.4 uM^3 (9.5-12.4); PLAT.SUFFICIENCY INCREASED
[2016-06-25 18:26] LABS: PLATELET COUNT 533 K/uL (156-360)
[2016-06-25] MEDS ORDERED: DOCUSATE SODIU100 MG PO (18:43)
[2016-06-25] MEDS ORDERED: OMEPRAZOLE20 MG PO (18:45)
[2016-06-25] MEDS ORDERED: JANUMET 50/11 TABLET PO (18:46)
[2016-06-25] MEDS ORDERED: OXYCODONE HCL10 MG PO (18:47)
[2016-06-25] MEDS ORDERED: FLEET MINERAL133 ML PR (18:48)
[2016-06-25] MEDS ORDERED: DULCOLAX10 MG PR (18:48)
[2016-06-25] MEDS ORDERED: MILK OF MAGN PO (18:50)
[2016-06-25] MEDS ORDERED: ACETAMINOPHEN325 M1 PO (18:51)
[2016-06-25 19:21] LABS: ADD MIUA? YES; BILIRUBIN NEGATIVE; BLOOD MODERATE; COLOR STRAW ((YELLOW)); GLUCOSE (STRIP) NEGATIVE; KETONES NEGATIVE; LEUKOCYTES LARGE; NITRITE NEGATIVE; PROTEIN (STRIP) NEGATIVE; SPECIFIC GRAVITY 1.004 (1.000-1.030); UROBILINOGEN 0.2 MG/DL (0.2-1.0)
[2016-06-25 19:27] LABS: BACTERIA RARE /HPF; EPITHELIAL CELLS RARE /HPF; MUCUS TRACE /LPF; RED BLOOD CELLS 0-5 /HPF (0-5); UCUL ADDED? NO
[2016-06-25 21:30] VITALS: BP 114/54
[2016-06-25 22:25] LABS: UR CREATININE CONCENTRATION 17.6 MG/DL
[2016-06-25 23:50] VITALS: BP 128/62
[2016-06-26 04:07] VITALS: BP 120/59
[2016-06-26 06:34] LABS: EOSINOPHIL (%) 0.5 % (0-5); EOSINOPHIL COUNT 0.1 K/uL (0-0.3); HEMATOCRIT 29.1 % (36.0-46.0); IMMATURE GRANULOCYTE (%) 1.5 % (0.0-0.7); IMMATURE GRANULOCYTE COUNT 0.2 K/uL; INSTRUMENT ABS NEUTROPHIL CT 13.4 K/uL; LYMPHOCYTE COUNT 0.6 K/uL (1.0-2.8); MCH 29.9 PG (29.0-34.0); MCV 90.7 FL (83-99); MEAN PLAT.VOLUME 9.6 uM^3 (9.5-12.4); MONOCYTE (%) 7.7 % (3-12); MONOCYTE COUNT 1.2 K/uL (0-0.8); NEUTROPHIL (%) 86.2 % (45-76); NEUTROPHIL COUNT 13.4 K/uL (1.8-6.4); PLATELET COUNT 522 K/uL (156-360); RBC DIS.WIDTH-CV 18.2 % (11.8-14.6); RBC DIS.WIDTH-SD 59.7 % (39-53); RED BLOOD COUNT 3.21 M/uL (3.80-5.20); WHITE BLOOD COUNT 15.6 K/uL (4.1-10.2)
[2016-06-26 06:57] LABS: POINT-OF-CARE METER ID UU14162508
[2016-06-26 07:33] LABS: ANION GAP 6 MEQ/L (2-14); CHLORIDE 90 MEQ/L (99-109); GFR ESTIMATE (CALCULATED) 29 mL/min/; GLUCOSE 113 mg/dL (70-99); SAMPLE HEMOLYSIS CHECK 2; SAMPLE ICTERIC CHECK 0; SAMPLE LIPEMIA CHECK 0; SODIUM 127 MEQ/L (136-147); UREA NITROGEN (BUN) 40 mg/dL (9-23)
[2016-06-26 07:37] LABS: POTASSIUM ND MEQ/L (3.7-5.4)
[2016-06-26 07:59] VITALS: BP 132/63
[2016-06-26 08:49] LABS: POTASSIUM 5.1 MEQ/L (3.7-5.4)
[2016-06-26 11:40] VITALS: BP 144/71
[2016-06-26 12:03] LABS: POINT-OF-CARE METER ID UU14162508
[2016-06-26 16:00] VITALS: BP 149/70
[2016-06-26 16:21] LABS: POINT-OF-CARE METER ID UU14162508
[2016-06-26 19:19] VITALS: BP 123/57
[2016-06-26 20:46] VITALS: BP 147/76
[2016-06-27 00:30] VITALS: BP 139/72
[2016-06-27 06:42] LABS: POINT-OF-CARE METER ID UU14162508
[2016-06-27 06:51] LABS: EOSINOPHIL (%) 0.5 % (0-5); EOSINOPHIL COUNT 0.1 K/uL (0-0.3); IMMATURE GRANULOCYTE (%) 1.2 % (0.0-0.7); IMMATURE GRANULOCYTE COUNT 0.2 K/uL; INSTRUMENT ABS NEUTROPHIL CT 12.6 K/uL; LYMPHOCYTE COUNT 0.5 K/uL (1.0-2.8); MCV 90.9 FL (83-99); MEAN PLAT.VOLUME 9.9 uM^3 (9.5-12.4); MONOCYTE (%) 8.8 % (3-12); MONOCYTE COUNT 1.3 K/uL (0-0.8); NEUTROPHIL COUNT 12.6 K/uL (1.8-6.4); PLATELET COUNT 565 K/uL (156-360); RBC DIS.WIDTH-CV 18.6 % (11.8-14.6); RBC DIS.WIDTH-SD 61.3 % (39-53); WHITE BLOOD COUNT 14.7 K/uL (4.1-10.2)
[2016-06-27 07:20] VITALS: BP 115/55
[2016-06-27 07:56] LABS: ANION GAP 6 MEQ/L (2-14); CHLORIDE 91 MEQ/L (99-109); GFR ESTIMATE (CALCULATED) 29 mL/min/; GLUCOSE 106 mg/dL (70-99); MAGNESIUM 1.7 mg/dl (1.3-2.7); POTASSIUM ND MEQ/L (3.7-5.4); SAMPLE HEMOLYSIS CHECK 2; SAMPLE ICTERIC CHECK 0; SAMPLE LIPEMIA CHECK 0; SODIUM 126 MEQ/L (136-147); UREA NITROGEN (BUN) 39 mg/dL (9-23)
[2016-06-27 11:48] LABS: POINT-OF-CARE METER ID UU14162508
[2016-06-27 14:50] VITALS: BP 127/61
[2016-06-27 15:31] LABS: POTASSIUM 4.9 MEQ/L (3.7-5.4)
[2016-06-27 21:36] LABS: POINT-OF-CARE METER ID UU14162508
[2016-06-27 23:03] VITALS: BP 115/54
[2016-06-28 07:10] VITALS: BP 115/53
[2016-06-28 10:01] LABS: CHLORIDE 93 mEq/L (99-109); POTASSIUM 4.9 mEq/L (3.7-5.4); SODIUM 130 mEq/L (136-147)
[2016-06-28 10:03] LABS: GLUCOSE 143 mg/dL (70-99)
[2016-06-28 10:04] LABS: ANION GAP 10 MEQ/L (2-14)
[2016-06-28 10:05] LABS: TOTAL BILIRUBIN 1.1 mg/dL (0.0-1.0)
[2016-06-28 10:07] LABS: ALKALINE PHOSPHATASE 154 IU/L (3-129); GFR ESTIMATE (CALCULATED) 28 mL/min/
[2016-06-28 10:08] LABS: UREA NITROGEN (BUN) 37 mg/dL (9-23)
[2016-06-28 11:24] LABS: POINT-OF-CARE METER ID UU14162508
[2016-06-28 15:30] VITALS: BP 116/58
[2016-06-28 16:08] LABS: POINT-OF-CARE METER ID UU14162508
[2016-06-28 23:07] VITALS: BP 120/52
[2016-06-29 06:45] LABS: POINT-OF-CARE METER ID UU14162508
[2016-06-29 07:15] VITALS: BP 132/63
[2016-06-29 07:31] LABS: ANION GAP 8 MEQ/L (2-14); CHLORIDE 94 MEQ/L (99-109); GFR ESTIMATE (CALCULATED) 29 mL/min/; GLUCOSE 118 mg/dL (70-99); POTASSIUM 4.5 MEQ/L (3.7-5.4); SAMPLE HEMOLYSIS CHECK 1; SAMPLE ICTERIC CHECK 0; SAMPLE LIPEMIA CHECK 0; SODIUM 131 MEQ/L (136-147); UREA NITROGEN (BUN) 34 mg/dL (9-23)
[2016-06-29 11:36] LABS: POINT-OF-CARE METER ID UU14162508
[2016-06-29 15:10] VITALS: BP 119/61
[2016-06-29 17:06] LABS: POINT-OF-CARE METER ID UU14162508
[2016-06-30 00:05] VITALS: BP 118/54
[2016-06-30 06:23] LABS: POINT-OF-CARE METER ID UU14162508
[2016-06-30 06:50] VITALS: BP 146/71
[2016-06-30 07:43] LABS: ANION GAP 6 MEQ/L (2-14); CHLORIDE 96 MEQ/L (99-109); GFR ESTIMATE (CALCULATED) 34 mL/min/; GLUCOSE 110 mg/dL (70-99); POTASSIUM 4.4 MEQ/L (3.7-5.4); SAMPLE HEMOLYSIS CHECK 1; SAMPLE ICTERIC CHECK 0; SAMPLE LIPEMIA CHECK 0; SODIUM 132 MEQ/L (136-147); UREA NITROGEN (BUN) 29 mg/dL (9-23)
[2016-06-30 15:42] VITALS: BP 143/78
[2016-06-30 15:58] LABS: POINT-OF-CARE METER ID UU14162508
[2016-06-30] MEDS ORDERED: ELIQUIS2.5 MG PO (18:00)
[2016-06-30] MEDS ORDERED: JANUVIA25 M1 PO (18:03)
[2016-06-30] MEDS ORDERED: OXYCODONE HCL5 MG PO (18:04)
== END 2016-06-30 19:58 | DRG 694 ==
LOC: EME 16:24 → 2EAST 20:00 → EDOF 20:00 → 2EAST 21:15
PROVIDERS: Emergency Medicine; Internal Medicine; Internal Medicine Nephrology
DX: N13.30 Unspecified hydronephrosis (principal); N17.9 Acute kidney failure, unspecified; K31.1 Adult hypertrophic pyloric stenosis; J90 Pleural effusion, not elsewhere classified; J84.9 Interstitial pulmonary disease, unspecified; E87.70 Fluid overload, unspecified; D84.9 Immunodeficiency, unspecified; E11.22 Type 2 diabetes mellitus with diabetic chronic kidney disease; E78.5 Hyperlipidemia, unspecified; E66.01 Morbid (severe) obesity due to excess calories; E87.1 Hypo-osmolality and hyponatremia; N94.89 Other specified conditions associated with female genital organs and menstrual cycle; I12.9 Hypertensive chronic kidney disease with stage 1 through stage 4 chronic kidney disease, or unspecified chronic kidney disease; N18.3 Chronic kidney disease, stage 3 (moderate); R60.0 Localized edema; E03.9 Hypothyroidism, unspecified; I87.2 Venous insufficiency (chronic) (peripheral); Z86.718 Personal history of other venous thrombosis and embolism; Z68.41 Body mass index [BMI] 40.0-44.9, adult; Z98.84 Bariatric surgery status
CPT/HCPCS: 71020; 74176; 76770; 80048; 80053; 80069; 81003; 82533 91; 82570; 82948; 83735; 83935; 84100; 84300; 84439; 84443; 84999; 85025; 85025 91; 93005; 99281; 99285; J1815; J1940; J7030

== ENCOUNTER → 2016-07-15 | Outpatient (CLI) | payer OTHER ==
[~2016-07-15] MED LIST changes: +ACETAMINOPHEN325 M1 PO; +CALCIUM 600 +1 EA17 PO; +DOCUSATE SODIU100 MG PO; +DULCOLAX10 MG PR; +ELIQUIS2.5 MG PO; +FLEET MINERAL133 ML PR; +JANUVIA25 M1 PO; +MILK OF MAGN PO; +MIRALAX17 GM PO; +OXYCODONE HCL10 MG PO; +OXYCODONE HCL5 MG PO
== END ==
LOC: RAD 10:36
DX: N94.89 Other specified conditions associated with female genital organs and menstrual cycle (principal); R19.09 Other intra-abdominal and pelvic swelling, mass and lump; N13.30 Unspecified hydronephrosis
CPT/HCPCS: 74176